=== PATIENT | male | born 1950 ===

== ENCOUNTER 2018-04-17 10:01 | Outpatient (CLI) | payer OTHER | END 2018-04-17 10:05 | disposition home or self-care (01) | LOC: LAB 10:01 | DX: R97.20 Elevated prostate specific antigen [PSA] (principal) ==

== ENCOUNTER 2018-05-12 07:19 | Outpatient (CLI) | payer OTHER | END 2018-05-12 07:24 | disposition home or self-care (01) | LOC: SONOGRAMA 07:19 | DX: R97.20 Elevated prostate specific antigen [PSA] (principal) ==

== ENCOUNTER 2018-05-26 07:02 | Outpatient (CLI) | payer OTHER | END 2018-05-26 07:10 | disposition home or self-care (01) | LOC: TOM 07:02 | DX: C61 Malignant neoplasm of prostate (principal) ==

== ENCOUNTER → 2018-05-29 | Outpatient (CLI) | payer OTHER | END | disposition home or self-care (01) | LOC: NUCLEAR 07:43 | DX: C61 Malignant neoplasm of prostate (principal) | CPT/HCPCS: 78306; 78320; A9503 ==

== ENCOUNTER 2018-10-14 07:28 | Outpatient (CLI) | payer OTHER | END 2018-10-14 07:45 | disposition home or self-care (01) | LOC: LAB 07:28 → RAD 07:28 → LAB 07:45 | DX: C61 Malignant neoplasm of prostate (principal); Z01.810 Encounter for preprocedural cardiovascular examination; Z01.812 Encounter for preprocedural laboratory examination ==

== ENCOUNTER 2018-11-01 11:00 | Inpatient (IN) | payer OTHER ==
[~2018-11-01] VITALS: Ht 167.6 cm; Wt 90.7 kg
[2018-11-01] MEDS ORDERED: ALTACE5 MG PO (13:04)
== END 2018-11-10 10:15 | disposition home or self-care (01) | DRG 708 ==
LOC: ADM 11:00 → O/R 11-08 05:28 → SURH 11-08 05:28 → CIR.AMB 11-08 11:00 → EDSTATUS 11-08 11:00 → SURH 11-08 13:49
PROVIDERS: ADMIT Urology
PROC: 07TC0ZZ Resection of Pelvis Lymphatic, Open Approach (ICD-10-PCS; 2018-11-08)
PROC: 0VT30ZZ Resection of Bilateral Seminal Vesicles, Open Approach (ICD-10-PCS; 2018-11-08)
PROC: 0YQA0ZZ Repair Bilateral Inguinal Region, Open Approach (ICD-10-PCS; 2018-11-08)
PROC: 0VT00ZZ Resection of Prostate, Open Approach (ICD-10-PCS; principal; 2018-11-08 07:00)
DX: C61 Malignant neoplasm of prostate (principal); K40.20 Bilateral inguinal hernia, without obstruction or gangrene, not specified as recurrent; I10 Essential (primary) hypertension

== ENCOUNTER 2019-06-09 07:17 | Outpatient (CLI) | payer OTHER ==
[~2019-06-09 07:17] MED LIST: ALTACE5 MG PO
== END 2019-06-09 09:03 | disposition home or self-care (01) ==
LOC: LAB 07:17
DX: C61 Malignant neoplasm of prostate (principal)